=== PATIENT | female | born 1950 | race Caucasian/White ===

== ENCOUNTER 2017-11-22 11:34 | Outpatient (CLI) | payer OTHER | END 2017-11-22 15:13 | disposition home or self-care (01) | LOC: SONOGRAMA 11:34 → RAD 11:34 → SONOGRAMA 15:13 | DX: R17 Unspecified jaundice (principal) ==

== ENCOUNTER → 2017-11-22 | Outpatient (CLI) | payer OTHER | END | disposition home or self-care (01) | LOC: LAB 08:02 | DX: R53.81 Other malaise (principal); R50.9 Fever, unspecified ==

== ENCOUNTER 2017-11-27 08:24 | Outpatient (CLI) | payer OTHER ==
[2017-11-27] MEDS ORDERED: METFORMIN HCL500 MG (21:11)
[2017-11-27] MEDS ORDERED: VASOTEC5 MG (21:11)
[2017-11-27] MEDS ORDERED: VERAPAMIL HCL40 MG (21:11)
[2017-11-27] MEDS ORDERED: METOPROLOL SUCC25 MG (21:12)
== END 2017-11-27 08:32 | disposition home or self-care (01) ==
LOC: TOM 08:24
DX: R53.81 Other malaise (principal); R50.9 Fever, unspecified
CPT/HCPCS: 74178; Q9965

== ENCOUNTER 2017-11-27 20:31 | Emergency (ER) | payer OTHER ==
[~2017-11-27] VITALS: Ht 162.6 cm; Wt 63.5 kg
[2017-11-27] MEDS ORDERED: VERAPAMIL HCL40 MG (21:11)
[2017-11-27] MEDS ORDERED: METFORMIN HCL500 MG (21:11)
[2017-11-27] MEDS ORDERED: VASOTEC5 MG (21:11)
[2017-11-27] MEDS ORDERED: METOPROLOL SUCC25 MG (21:12)
== END 2017-11-27 22:55 | disposition home or self-care (01) ==
LOC: ER 20:31
DX: R17 Unspecified jaundice (principal); L29.8 Other pruritus

== ENCOUNTER 2017-11-28 07:41 | Outpatient (CLI) | payer OTHER ==
[~2017-11-28 07:41] MED LIST: METFORMIN HCL500 MG; METOPROLOL SUCC25 MG; VASOTEC5 MG; VERAPAMIL HCL40 MG
== END 2017-11-28 08:53 | disposition home or self-care (01) ==
LOC: LAB 07:41
DX: R74.0 Nonspecific elevation of levels of transaminase and lactic acid dehydrogenase [LDH] (principal)

== ENCOUNTER → 2017-11-30 | Emergency (ER) | payer OTHER ==
[~2017-11-30] VITALS: Ht 154.9 cm; Wt 69.9 kg
== END | disposition home or self-care (01) ==
LOC: ER 17:21
DX: G89.18 Other acute postprocedural pain (principal); R10.84 Generalized abdominal pain

== ENCOUNTER 2017-12-04 07:23 | Outpatient (CLI) | payer OTHER | END 2017-12-04 07:52 | disposition home or self-care (01) | LOC: LAB 07:23 | DX: C22.1 Intrahepatic bile duct carcinoma (principal) ==

== ENCOUNTER → 2017-12-12 08:59 | Outpatient (CLI) | payer OTHER | END | disposition home or self-care (01) | LOC: LAB 12-10 07:19 | DX: C22.9 Malignant neoplasm of liver, not specified as primary or secondary (principal); K86.89 Other specified diseases of pancreas; C79.9 Secondary malignant neoplasm of unspecified site ==

== ENCOUNTER 2018-03-06 08:02 | Outpatient (CLI) | payer OTHER | END 2018-03-06 08:09 | disposition home or self-care (01) | LOC: LAB 08:02 | DX: C25.0 Malignant neoplasm of head of pancreas (principal) ==

== ENCOUNTER 2018-03-14 07:53 | Outpatient (CLI) | payer OTHER | END 2018-03-14 08:22 | disposition home or self-care (01) | LOC: LAB 07:53 | DX: C25.0 Malignant neoplasm of head of pancreas (principal) ==

== ENCOUNTER 2018-03-22 08:38 | Outpatient (CLI) | payer OTHER | END 2018-03-22 08:45 | disposition home or self-care (01) | LOC: LAB 08:38 | DX: C25.0 Malignant neoplasm of head of pancreas (principal) ==

== ENCOUNTER 2018-03-29 07:31 | Outpatient (CLI) | payer OTHER | END 2018-03-29 07:39 | disposition home or self-care (01) | LOC: LAB 07:31 | DX: C25.0 Malignant neoplasm of head of pancreas (principal) ==

== ENCOUNTER 2018-04-05 07:36 | Outpatient (CLI) | payer OTHER | END 2018-04-05 14:26 | disposition home or self-care (01) | LOC: LAB 07:36 | DX: C25.0 Malignant neoplasm of head of pancreas (principal); Z51.81 Encounter for therapeutic drug level monitoring ==

== ENCOUNTER 2018-04-16 06:55 | Outpatient (CLI) | payer OTHER | END 2018-04-16 07:16 | disposition home or self-care (01) | LOC: LAB 06:55 | DX: C25.0 Malignant neoplasm of head of pancreas (principal) ==

== ENCOUNTER 2018-05-14 06:47 | Outpatient (CLI) | payer OTHER | END 2018-05-14 06:53 | disposition home or self-care (01) | LOC: LAB 06:47 | DX: C25.0 Malignant neoplasm of head of pancreas (principal) ==

== ENCOUNTER 2018-05-30 07:19 | Outpatient (CLI) | payer OTHER | END 2018-05-30 07:27 | disposition home or self-care (01) | LOC: LAB 07:19 | DX: C25.0 Malignant neoplasm of head of pancreas (principal) ==

== ENCOUNTER → 2018-06-13 07:21 | Outpatient (CLI) | payer OTHER | END | disposition home or self-care (01) | LOC: LAB 07:21 | DX: C25.0 Malignant neoplasm of head of pancreas (principal) ==

== ENCOUNTER 2018-07-06 12:01 | Outpatient (CLI) | payer OTHER | END 2018-07-06 12:05 | disposition home or self-care (01) | LOC: LAB 12:01 | DX: C25.0 Malignant neoplasm of head of pancreas (principal) ==

== ENCOUNTER 2018-08-06 07:34 | Outpatient (CLI) | payer OTHER | END 2018-08-06 07:39 | disposition home or self-care (01) | LOC: LAB 07:34 | DX: C25.9 Malignant neoplasm of pancreas, unspecified (principal) ==

== ENCOUNTER 2018-08-28 07:35 | Outpatient (CLI) | payer OTHER | END 2018-08-28 07:42 | disposition home or self-care (01) | LOC: MAMO-SONO 07:35 | DX: Z12.31 Encounter for screening mammogram for malignant neoplasm of breast (principal); Z87.898 Personal history of other specified conditions ==

== ENCOUNTER 2018-09-12 08:44 | Outpatient (CLI) | payer OTHER | END 2018-09-12 08:49 | disposition home or self-care (01) | LOC: LAB 08:44 | DX: C25.9 Malignant neoplasm of pancreas, unspecified (principal) ==

== ENCOUNTER 2018-10-02 07:24 | Outpatient (CLI) | payer OTHER | END 2018-10-02 07:30 | disposition home or self-care (01) | LOC: LAB 07:24 | DX: C25.9 Malignant neoplasm of pancreas, unspecified (principal) ==

== ENCOUNTER → 2018-10-14 10:42 | Outpatient (CLI) | payer OTHER | END | disposition home or self-care (01) | LOC: LAB 10:42 | DX: C25.9 Malignant neoplasm of pancreas, unspecified (principal) ==

== ENCOUNTER 2018-10-16 08:44 | Outpatient (CLI) | payer OTHER | END 2018-10-16 08:52 | disposition home or self-care (01) | LOC: TOM 08:44 | DX: C25.8 Malignant neoplasm of overlapping sites of pancreas (principal) | CPT/HCPCS: 74177; Q9965 ==

== ENCOUNTER 2018-11-26 07:19 | Outpatient (CLI) | payer OTHER | END 2018-11-26 08:01 | disposition home or self-care (01) | LOC: LAB 07:19 | DX: C25.8 Malignant neoplasm of overlapping sites of pancreas (principal) ==

== ENCOUNTER 2018-12-12 06:52 | Outpatient (CLI) | payer OTHER | END 2018-12-12 06:57 | disposition home or self-care (01) | LOC: LAB 06:52 | DX: C25.7 Malignant neoplasm of other parts of pancreas (principal) ==

== ENCOUNTER 2018-12-27 08:17 | Outpatient (CLI) | payer OTHER | END 2018-12-27 08:23 | disposition home or self-care (01) | LOC: LAB 08:17 | DX: C25.8 Malignant neoplasm of overlapping sites of pancreas (principal) ==

== ENCOUNTER 2018-12-27 08:52 | Outpatient (CLI) | payer OTHER | END 2018-12-27 09:00 | disposition home or self-care (01) | LOC: NUCLEAR 08:52 | DX: C25.9 Malignant neoplasm of pancreas, unspecified (principal) | CPT/HCPCS: 78815; A9552 ==

== ENCOUNTER 2019-01-30 08:05 | Outpatient (CLI) | payer OTHER | END 2019-01-30 08:14 | disposition home or self-care (01) | LOC: LAB 08:05 | DX: C25.9 Malignant neoplasm of pancreas, unspecified (principal) ==

== ENCOUNTER 2019-03-27 07:07 | Outpatient (CLI) | payer OTHER | END 2019-03-27 07:21 | disposition home or self-care (01) | LOC: LAB 07:07 | DX: C25.7 Malignant neoplasm of other parts of pancreas (principal) ==

== ENCOUNTER 2019-04-07 07:18 | Outpatient (CLI) | payer OTHER | END 2019-04-07 07:46 | disposition home or self-care (01) | LOC: LAB 07:18 | DX: C25.9 Malignant neoplasm of pancreas, unspecified (principal) ==

== ENCOUNTER 2019-04-21 07:47 | Outpatient (CLI) | payer OTHER | END 2019-04-21 08:31 | disposition home or self-care (01) | LOC: LAB 07:47 | DX: C25.9 Malignant neoplasm of pancreas, unspecified (principal); I10 Essential (primary) hypertension; E11.9 Type 2 diabetes mellitus without complications; E78.00 Pure hypercholesterolemia, unspecified; N39.0 Urinary tract infection, site not specified; Z12.12 Encounter for screening for malignant neoplasm of rectum ==

== ENCOUNTER → 2019-05-16 07:37 | Outpatient (CLI) | payer OTHER | END | disposition home or self-care (01) | LOC: LAB 07:37 | DX: C25.8 Malignant neoplasm of overlapping sites of pancreas (principal) ==

== ENCOUNTER 2019-05-27 10:44 | Outpatient (CLI) | payer OTHER | END 2019-05-27 11:03 | disposition home or self-care (01) | LOC: NUCLEAR 10:44 | DX: M81.0 Age-related osteoporosis without current pathological fracture (principal) ==

== ENCOUNTER 2019-06-11 07:43 | Outpatient (CLI) | payer OTHER | END 2019-06-11 09:12 | disposition home or self-care (01) | LOC: LAB 07:43 | DX: C25.9 Malignant neoplasm of pancreas, unspecified (principal) ==

== ENCOUNTER 2019-06-26 08:01 | Outpatient (CLI) | payer OTHER | END 2019-06-26 08:09 | disposition home or self-care (01) | LOC: TOM 08:01 | DX: C25.9 Malignant neoplasm of pancreas, unspecified (principal) | CPT/HCPCS: 71260; 74177; Q9965 ==

== ENCOUNTER 2019-07-17 07:02 | Outpatient (CLI) | payer OTHER | END 2019-07-17 07:11 | disposition home or self-care (01) | LOC: LAB 07:02 | DX: C25.9 Malignant neoplasm of pancreas, unspecified (principal); E11.9 Type 2 diabetes mellitus without complications ==

== ENCOUNTER 2019-08-19 09:21 | Outpatient (CLI) | payer OTHER | END 2019-08-19 15:04 | disposition home or self-care (01) | LOC: LAB 09:21 | DX: C25.8 Malignant neoplasm of overlapping sites of pancreas (principal); K86.81 Exocrine pancreatic insufficiency ==

== ENCOUNTER 2019-09-15 07:20 | Outpatient (CLI) | payer OTHER | END 2019-09-15 07:26 | disposition home or self-care (01) | LOC: LAB 07:20 | DX: C25.7 Malignant neoplasm of other parts of pancreas (principal) ==

== ENCOUNTER 2019-10-01 06:46 | Outpatient (CLI) | payer OTHER | END 2019-10-01 06:50 | disposition home or self-care (01) | LOC: LAB 06:46 | DX: C25.7 Malignant neoplasm of other parts of pancreas (principal) ==

== ENCOUNTER 2019-10-01 07:23 | Outpatient (CLI) | payer OTHER | END 2019-10-01 07:40 | disposition home or self-care (01) | LOC: TOM 07:23 | DX: C25.8 Malignant neoplasm of overlapping sites of pancreas (principal) | CPT/HCPCS: 74178; Q9965 ==

== ENCOUNTER 2019-10-21 06:53 | Outpatient (CLI) | payer OTHER | END 2019-10-21 07:02 | disposition home or self-care (01) | LOC: LAB 06:53 | DX: C25.8 Malignant neoplasm of overlapping sites of pancreas (principal); I10 Essential (primary) hypertension; E11.9 Type 2 diabetes mellitus without complications; E78.00 Pure hypercholesterolemia, unspecified; N39.0 Urinary tract infection, site not specified ==

== ENCOUNTER 2019-11-21 10:11 | Outpatient (CLI) | payer OTHER | END 2019-11-21 10:19 | disposition home or self-care (01) | LOC: LAB 10:11 | DX: R05 Cough (principal); R53.81 Other malaise; R50.9 Fever, unspecified ==

== ENCOUNTER 2020-01-16 08:26 | Outpatient (CLI) | payer OTHER | END 2020-01-16 08:37 | disposition home or self-care (01) | LOC: LAB 08:26 | DX: C25.9 Malignant neoplasm of pancreas, unspecified (principal) ==

== ENCOUNTER 2020-02-02 08:01 | Outpatient (CLI) | payer OTHER | END 2020-02-02 08:08 | disposition home or self-care (01) | LOC: LAB 08:01 | DX: D68.8 Other specified coagulation defects (principal) ==

== ENCOUNTER 2020-06-01 08:01 | Outpatient (CLI) | payer OTHER | END 2020-06-01 15:00 | disposition home or self-care (01) | LOC: LAB 08:01 | PROVIDERS: ATTEND Internal Medicine Hematology & Oncology | DX: C25.7 Malignant neoplasm of other parts of pancreas (principal) ==

== ENCOUNTER → 2020-06-28 08:58 | Outpatient (CLI) | payer OTHER | END | disposition home or self-care (01) | LOC: LAB 08:58 | PROVIDERS: ATTEND Internal Medicine Hematology & Oncology | DX: C25.9 Malignant neoplasm of pancreas, unspecified (principal) ==